=== PATIENT | female | born 1985 | race Caucasian/White ===

== ENCOUNTER 2016-11-18 22:48 | Inpatient (IN) | payer BC ==
[2016-11-18] MEDS ORDERED: Lactated Ringers 500 ML IV ONE (23:06)
[2016-11-18] MEDS ORDERED: Carboprost Tromethamine 250 MCG/1 ML Amp IM PRN (23:06)
[2016-11-18] MEDS ORDERED: Misoprostol 400 MCG (4 X 100 MCG TAB) RECTAL PRN (23:06)
[2016-11-18] MEDS ORDERED: Lidocaine 1% 30 ML SDV INJECT PRN (23:06)
[2016-11-18] MEDS ORDERED: Methylergonovine 0.2 MG/1 ML Amp IM PRN (23:06)
[2016-11-18] MEDS ORDERED: Ondansetron 4 MG/2 ML SDV IV PRN (23:06)
[2016-11-18] MEDS ORDERED: Sodium Chloride 0.9% 10 ML Syringe FLUSH PRN (23:14)
[2016-11-19] MEDS: Lactated Ringers 1,000 ML IV SCH ×2 (01:01→03:42)
[2016-11-19] MEDS ORDERED: Oxytocin/Normal Saline 30 UNIT/500 ML BAG IV SCH (01:15)
[2016-11-19] MEDS ORDERED: fentaNYL 100 MCG/2 ML SDV ONE (01:49)
--- NOTE | 2016-11-19 02:07 | PCM.PRNOTE ---
- Free Text/Narrative Note: Patient Id'd chart reviewed in sitting positions sterile prep with betadine and draped. L3-4 space id'd, skin wheel with 1% Lidocaine. 24 G pencan spinal needle advanced into SA space via an 18 G introducer. negative blood/ parasthesia positive CSF. 6 mg hyperbaric Marcaine, 30 mcg fentanyl, 20 mcg sufentanyl and epinepherine wash injected into SA space positive swirl X2. BP /120/75, HR 78 SpO2 98% on RA, Temp 97.4 immediate pain relief is achieved
--- NOTE | 2016-11-19 02:10 | PCM.PREANE ---
Preanesthetic Assessment - Procedure Proposed Procedure: Term in labor for vaginal delivery - Anesthesia/Transfusion/Family Hx Anesthesia History: Prior Anesthesia Without Reaction Family History of Anesthesia Reaction: No Transfusion History: No Prior Transfusion(s) Intubation History: Unknown - Review of Systems General: No Symptoms Pulmonary: No Symptoms Cardiovascular: No Symptoms Gastrointestinal: No symptoms Neurological: No Symptoms Other: Reports: None - Physical Assessment NPO Status Date: 11/19/16 NPO Status Time: 00:00 Pulse: 69 O2 Sat by Pulse Oximetry: 99 Respiratory Rate: 20 Blood Pressure: 120/75 Temperature: 97.2 F Height: 1.5 m Weight: 65.317 kg ASA Class: 2 Mental Status: Alert & Oriented x3 Airway Class: Mallampati = 2 Dentition: Reports: Normal Dentition ROM/Head Extension: Full Lungs: Clear to auscultation, Normal respiratory effort Cardiovascular: Regular Rate, Regular Rhythm - Lab Values: Laboratory Last Values WBC 9.5 10^3/uL (5.0-10.0) 11/18/16 23:30 RBC 4.23 10^6/uL (4.2-5.4) 11/18/16 23:30 Hgb 13.0 g/dL (12.0-16.0) 11/18/16 23:30 Hct 38.6 % (37.0-47.0) 11/18/16 23:30 MCV 91.3 fL (80-100) 11/18/16 23:30 MCH 30.7 pg (27.0-34.0) 11/18/16 23:30 MCHC 33.7 g/dL (33.0-35.0) 11/18/16 23:30 Plt Count 226 10^3/uL (150-450) 11/18/16 23:30 - Allergies Allergies/Adverse Reactions: Allergies Allergy/AdvReac Type Severity Reaction Status Date / Time amoxicillin trihydrate Allergy Abdominal Verified 09/15/14 15:52 [From Augmentin] Pain cefaclor [From Ceclor] Allergy Hives Verified 09/15/14 15:52 potassium clavulanate Allergy Abdominal Verified 09/15/14 15:52 [From Augmentin] Pain - Blood Blood Available: No Product(s) Available: None - Anesthesia Plan Pre-Op Medication Ordered: None - Acknowledgements Anesthesia Type Planned: Spinal Pt an Appropriate Candidate for the Planned Anesthesia: Yes Alternatives and Risks of Anesthesia Discussed w Pt/Guardian: Yes Pt/Guardian Understands and Agrees with Anesthesia Plan: Yes Additional Comments: R/B of Intrathecal Narcotics for labor pain discussed with patient and agreed. consent is signed. PreAnesthesia Questionnaire - SUBSTANCE USE Smoking Status *Q: Never Smoker Second Hand Smoke Exposure: No Days Per Week of Alcohol Use: 0 Recreational Drug Use History: No - HOME MEDS Home Medications: Home Meds Cyclobenzaprine [Flexeril] 10 mg PO TID PRN #30 tablet 07/24/14 [Rx] Docusate Sodium [Colace] 100 mg PO BID PRN #30 cap 09/28/14 [Rx] Ferrous Sulfate 325 mg PO WITHBREAKFAST #30 tablet 09/28/14 [Rx] - CURRENT (IN HOUSE) MEDS Current Meds: Current Medications Acetaminophen (Tylenol) 650 mg PO Q4H PRN PRN Reason: Pain (Mild 1-3) and fever Carboprost Tromethamine (Hemabate Ds) 250 mcg IM ASDIRECTED PRN PRN Reason: HEMORRHAGE Lactated Ringer's (Ringers, Lactated) 1,000 mls @ 125 mls/hr IV ASDIRECTED YAMIL Last Admin: 11/19/16 01:01 Dose: 125 mls/hr Oxytocin/Sodium Chloride (Pitocin In Ns 30 Unit/500 Ml) 30 unit in 500 mls @ 500 mls/hr IV TITRATE YAMIL; 500 MUNITS/MIN PRN Reason: Protocol Lidocaine HCl (Xylocaine-Mpf 1%) 10 ml INJECT ASDIRECTED PRN PRN Reason: Perineal Repair Methylergonovine Maleate (Methergine) 0.2 mg IM ASDIRECTED PRN PRN Reason: Hemorrhage Misoprostol (Cytotec) 800 mcg RECTAL ASDIRECTED PRN PRN Reason: Hemorrhage Ondansetron HCl (Zofran) 4 mg IV Q4H PRN PRN Reason: Nausea/Vomiting Last Admin: 11/19/16 01:16 Dose: 4 mg Sodium Chloride (Saline Flush) 10 ml FLUSH ASDIRECTED PRN PRN Reason: Keep Vein Open Discontinued Medications Fentanyl (Sublimaze) Confirm Administered Dose 100 mcg .ROUTE .STK-MED ONE Stop: 11/19/16 01:50 Lactated Ringer's (Ringers, Lactated) 500 mls @ 500 mls/hr IV .BOLUS ONE Stop: 11/19/16 00:05 Sufentanil Citrate (Sufenta) Confirm Administered Dose 50 mcg .ROUTE .K-MED ONE Stop: 11/19/16 01:50
[2016-11-19] MEDS ORDERED: Simethicone 80 MG Tab.Chew PO PRN (04:09)
[2016-11-19] MEDS ORDERED: Zolpidem 5 MG Tab PO PRN (04:09)
[2016-11-19] MEDS ORDERED: Oxytocin 10 Units/1 ML SDV IM PRN (04:09)
[2016-11-19] MEDS ORDERED: Sodium Chloride 0.9% 10 ML Syringe FLUSH PRN (04:09)
[2016-11-19] MEDS ORDERED: Benzocaine/Menthol 20%-0.5% Spray 56 GM Canister TOP PRN (04:09)
[2016-11-19] MEDS: Ibuprofen 800 MG Tab PO PRN ×2 (05:19→19:56)
[2016-11-19] MEDS: Docusate Sodium 100 MG Cap PO PRN ×2 (09:28→19:56)
[2016-11-19] MEDS: Prenatal Multivitamin with Calcium/Folic Acid/Iron Tab PO SCH (09:28)
[2016-11-19] MEDS: Acetaminophen 325 MG Tab PO PRN (09:28)
--- NOTE | 2016-11-19 10:04 | HP ---
PATIENT IDENTIFICATION: Jo Peñaloza is a 31-year-old, G2, P1-0-0-1, intrauterine at 39-1/7 weeks by 8-/7th-week ultrasound, who presents with contractions. HISTORY OF PRESENT ILLNESS: The patient states contractions started approximately 8:00 p.m. on date of admission, increasing in frequency and intensity to the point that they are coming every 5 minutes, lasting about a minute, felt in the lower abdomen and back and causing her to breathe through them. Nothing seems to make them better. Time has made them worse. She denies any spotting, bleeding, or leaking. To put this in context, with her last delivery, she was found to be around 6 cm upon admission and dilated quickly thereafter. Records were called for, reviewed as below and supplemented by patient history. OBSTETRICAL HISTORY: On 09/26/2014, delivered at 39-5/7th weeks via vacuum- assisted vaginal delivery yielding a female with excessive bleeding, weighing 3235 g. ANTEPARTUM LABORATORY DATA: ABO blood type O positive, negative antibody. Rubella immune. RPR nonreactive. Negative hepatitis B surface antigen. Negative hep C, HIV, GC, and Chlamydia. Wet prep remarkable for some fungal elements and yeast. One-hour GTT was 100 on 09/04/2016, with hemoglobin 11.3 and platelets 209,000 same day. GBS was negative on 10/30/2016. ALLERGIES: Ceclor, Augmentin. MEDICATIONS: vitamins. PAST MEDICAL/PAST SURGICAL HISTORY: Remarkable for history of chickenpox, body piercing of ears and belly. No IV drug use. No tattoos. No blood transfusions. Appendectomy on 02/27/2003. Tonsil and adenoidectomy in 1986 when she was 1 years of age. SOCIAL HISTORY: Does not smoke. No alcohol use since . No drug use. Sexually active with male partner. and lives in [place]. Lives with her and daughter. She has 2 dogs in the house. 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 FAMILY HISTORY: Alzheimer's disease in maternal grandfather, father with COPD, diabetes in paternal grandfather, paternal grandmother with heart disease, hypertension in father, paternal grandfather with lung cancer and he did smoke. Mother, sister, brother, and maternal grandmother do not have any diseases. Negative family history of bleeding problems, anesthesia problems, thyroid disease, defects, seizures, or cystic fibrosis. REVIEW OF SYSTEMS: Otherwise reviewed and felt to be noncontributory. OBJECTIVE: Vital Signs: Blood pressure was 129/68, heart rate 80, the patient feels afebrile, respiratory rate is between 12 and 16. Appearance: Female, appears her stated age, breathing through her contractions, answering questions appropriately in between. HEENT: Head atraumatic. EOMs intact. PERRLA. No scleral icterus. No obvious otorhinorrhea. Mucous membranes moist. Neck: No obvious tenderness. Lungs: Clear to auscultation bilaterally with distance. No increased work of breathing. Heart: S1 and S2, regular rate and rhythm. Abdomen: Gravid, Alejandro's indeterminate, nontender, nondistended. Bowel sounds positive. No other organomegaly, pulsatile masses, or obvious hernias. No rebound, rigidity, or guarding. : Normal external female genitalia. Normal position and presentation of urethra. Vaginal Exam: Reveals to be 4 cm, 80% effaced, -1 to -2 station, vertex suspected. Extremities: Trace pedal edema. Deep tendon reflexes 2/4 bilaterally and symmetric in lower extremities. Psych: Mood and affect congruent. Judgment and insight intact. Skin: No cyanosis, clubbing, or jaundice. heart tones; baseline is in the 130s range. There is at least 1 acceleration noted. Tocometer reveals contractions every 5 minutes on average. ASSESSMENT: 1. Intrauterine at 39-1/7 weeks by 18-3/7th-week ultrasound. 2. Active labor with contractions with cervical change. 3. Group B Streptococcus negative. 4. 2, para 1-0-0-1. 5. History of rapid cervical dilation. PLAN: The patient will be admitted to the hospital. Follow clinically and closely. I did discuss potential for artificial rupture of membranes. The patient understands and agrees, and shared decision was made to proceed with this. Please see further notes after this has been done. At current time, following heart tones and maternal status closely. [facility] /[id number]
--- NOTE | 2016-11-19 10:46 | PCM.POSTAN ---
POST ANESTHESIA ASSESSMENT - MENTAL STATUS Mental Status: alert, oriented - VITAL SIGNS Pulse Rate: 70 SaO2: 100 Resp Rate: 18 Blood Pressure: 110/62 Temperature: 97.3 F - RESPIRATORY Respiratory Status: respiratory rate WNL, airway patent, O2 saturation stable - CARDIOVASCULAR CV Status: pulse rate WNL, blood pressure stable - GASTROINTESTINAL GI Status: no symptoms - PAIN Pain Score: 0 - POST OP HYDRATION Hydration Status: adequate & stable - OBSERVATIONS Free Text/Narrative:: Sitting in bed deny pain or nausea. Ambulated without any issue. Achieved full recovery from her spinal narcotic. Pleased with her anesthetic plan of care.
--- NOTE | 2016-11-19 11:37 | PN ---
DATE: 11/18/2016 SUBJECTIVE: The patient's contractions continued to get stronger. OBJECTIVE: heart tones in the 130s-135 range, felt to be reassuring. Tocometer reveals contractions every 4-5 minutes. Vaginal exam reveals her to be changed at 4+ cm, 75 to 80% effaced, -1 station, vertex suspected, and artificial membranes done after discussion with the patient yielding copious amounts of clear fluid. ASSESSMENT/PLAN: Intrauterine at 39-1/7 weeks by 8 and 07/30 weeks' ultrasound in active labor with contractions with cervical change in a G2, P1-0- 0-1 with history of rapid cervical dilation. We will continue to follow clinically and closely. Pain control has been discussed with her through the HUMAN RELATIONS MANAGER already and we will continue to follow closely. The patient understands and agrees with the above treatment plan. [facility] /[id number]
[2016-11-19] MEDS ORDERED: fentaNYL 100 MCG/2 ML SDV ITHECAL ONE (12:37)
--- NOTE | 2016-11-19 13:44 | OBOUT ---
DATE: 11/18/2016 DATE AND TIME OF NST: Date: 11/18/2016. Time: 2313 hours to 2328 hours. REASON FOR NST: 1. Intrauterine at 39-1/7th weeks by 8-3/7th week ultrasound. 2. Active labor. 3. Group B Streptococcus negative. 4. G2, P1-0-0-1. 5. History of rapid cervical dilation. NST INTERPRETATION: During this time period, tone baseline is approximately 130 to 135, and there are at least two 15 x 15 beat per minute accelerations, making this strip reactive. It is also noted to be reassuring. Tocometer reveals potential of 3 contractions, felt by patient breathing through them. ASSESSMENT: 1. NST-reactive and reassuring. 2. Tocometer with contractions. PLAN: Please see admit history and physical for further details. Currently, IV is being started, and we will consider artificial rupture membranes as discussed with the patient and as she has requested. [facility] /[id number]
[2016-11-20] MEDS: Ibuprofen 800 MG Tab PO PRN (04:27)
[2016-11-20] MEDS: Acetaminophen 325 MG Tab PO PRN (09:13)
[2016-11-20] MEDS: Docusate Sodium 100 MG Cap PO PRN (09:14)
[2016-11-20] MEDS: Prenatal Multivitamin with Calcium/Folic Acid/Iron Tab PO SCH (09:14)
--- NOTE | 2016-11-20 09:17 | DEL ---
DATE: 11/19/2016 PREOPERATIVE DIAGNOSES: 1. Intrauterine at 39-2/7th weeks by 8-3/7th weeks' ultrasound. 2. Active labor upon admit. 3. Group B Streptococcus negative. 4. History of rapid cervical dilation. 5. 2, para 1-0-0-1. 6. bradycardia in the second stage of labor. POSTOPERATIVE DIAGNOSES: 1. Intrauterine at 39-2/7th weeks by 8-3/7th weeks' ultrasound - delivered. 2. Active labor upon admit. 3. Group B Streptococcus negative. 4. History of rapid cervical dilation. 5. 2 para 1-0-0-1. 6. bradycardia in the second stage of labor. 7. CIERA presentation with left hand by right cheek with left shoulder/posterior shoulder delivered first with patient pushing. 8. Small, less than 1 cm, perineal laceration non-repaired, nonbleeding, after discussion with the patient. PROCEDURE PERFORMED: NST, artificial rupture of membranes on 11/18/2016, followed by vacuum-assisted vaginal delivery on 11/19/2016. ANESTHESIA/ANALGESIA: The patient did receive an intrathecal in the first stage of labor. FINDINGS: Female, scores of 8 and 9, weighing 7 pounds 4 ounces (3280 g). ESTIMATED BLOOD LOSS: 200 mL. SUMMARY OF EVENTS: The patient is a 31-year-old G2, P1-0-0-1, intrauterine at 39-1/7th weeks on date of admission (11/18/2016), delivered on 11/19/2016. She was admitted in active labor with history of rapid cervical dilation. She underwent NST followed by artificial rupture of membranes. Continued to dilate and received an intrathecal in the first stage of labor. She was found to be in the second stage of labor. I was called to the room, donned sterile gown and gloves. The patient started pushing with contractions. During this time period, bradycardia ensued with heart rates in the 80s to 90s without recovery between contractions. Subsequently, discussion about kiwi vacuum-assisted vaginal delivery ensued with her and her . Discussed risks, benefits, alternatives and complications of this. Verbal consent was obtained. Catheter was introduced in the bladder yielding copious amounts of clear urine, this was removed. With the next episode of pushing, vertex was seen splitting the labia and kiwi vacuum was applied. With gentle pulling on the kiwi vacuum while pumped up to the green and with the patient pushing, vertex was then delivered in an CIERA presentation with vacuum disengaged thereafter. Left hand was noted to be by the right cheek and with pushing, this posterior arm/shoulder delivered first prior to the anterior shoulder, which then followed, followed by the rest of the without difficulty. Mouth and nares were suctioned. Cord was doubly clamped and cut, and infant was resuscitated on mother's abdomen/chest. Then, approximately 10 mL of cord blood was obtained for labs. Placenta then delivered with gentle cord traction and fundal massage within 5 to 10 minutes. Perineum, vagina, and perirectal areas were then examined and noted to have a small less than 1 cm perineal laceration, non-repaired, nonbleeding, after discussion with the patient. Mother and infant are currently stable at the time of dictation. [facility] /[id number]
[2016-11-20 11:08] VITALS: BP 114/63
--- NOTE | 2016-11-25 02:31 | DISCH ---
ADMITTING DIAGNOSES: 1. 2, para 1-0-0-1. 2. A 39 and 1/7th weeks based on 8-week ultrasound. 3. Blood type O positive, rubella immune, and group B Streptococcus negative. DISCHARGE DIAGNOSES: 1. 2, now para 2-0-0-2. 2. A 39 and 1/7th weeks based on 8-week ultrasound. 3. Blood type O positive, rubella immune, and group B Streptococcus negative. 4. Vacuum-assisted vaginal delivery secondary to bradycardia. 5. Status post intrathecal for pain management. BRIEF HISTORY: A 31-year-old female with uncomplicated presented with spontaneous onset of labor, which was managed with intrathecal for pain management and artificial rupture of membranes. She was in stage I for about 7- 1/2 hours and pushed only for about 7 minutes. Baby was having significant difficulties with bradycardia, therefore vacuum assistance was performed and baby is a term female, weight 3280 g with scores of 8 and 9. HOSPITAL COURSE: Good. The patient has done well since time of delivery, ambulating, tolerating regular diet, voiding without difficulties, passing flatus. seems to be going well. No concerns of pre-eclampsia or infection. Overall, doing well and wishing to go home on day #1. LABORATORY DATA: Admission hemoglobin 13.0, platelets of 262. Discharge hemoglobin of 11.8 and platelets of 200. DISCHARGE CONDITION: Good. PHYSICAL EXAMINATION: Vital Signs: Temperature is 98.3, pulse 60, blood pressure 114/63, respiratory rate 16, and O2 saturations 97% on room air. Heart: Regular without obvious murmur. Lungs: Clear bilaterally. Abdomen: Soft without masses. Fundus is firm and below the umbilicus. Extremities: No edema, erythema, or tenderness noted. FOLLOWUP: A 6-week exam in the office. DICHARGE INSTRUCTIONS: Routine post-vaginal delivery instructions for mother were reviewed and she understands to return if she develops any complications such as fever, chills, increased pelvic pain or pressure, foul- smelling drainage, discharge, difficulties with bleeding or any other issues arise. DISCHARGE MEDICATIONS: 1. Iron 325 mg once or twice daily for 4 weeks. 2. Ibuprofen 800 mg every 8 hours as needed for pain. 3. Tylenol 650 mg every 6 hours as needed for pain. 4. vitamin [address] [facility] /[id number]
== END 2016-11-20 12:09 | disposition home or self-care (01) | DRG 560 ==
LOC: DL.OBCHECK 22:48 → DL.OB 23:07 → OBSVTOIN 11-19 03:55 → DL.MS 11-19 08:26
PROVIDERS: ADMIT Family Medicine; ATTEND Family Medicine
PROC: 10D07Z6 Extraction of Products of Conception, Vacuum, Via Natural or Artificial Opening (ICD-10-PCS; principal; 2016-11-19)
PROC: 10907ZC Drainage of Amniotic Fluid, Therapeutic from Products of Conception, Via Natural or Artificial Opening (ICD-10-PCS; 2016-11-19)
PROC: 00HU33Z Insertion of Infusion Device into Spinal Canal, Percutaneous Approach (ICD-10-PCS; 2016-11-19)
DX: O76 Abnormality in fetal heart rate and rhythm complicating labor and delivery (principal); Z3A.39 39 weeks gestation of pregnancy; Z37.0 Single live birth; Z88.1 Allergy status to other antibiotic agents
CPT/HCPCS: 36415; 85027; A9270-GY; J2405; J2590; J3010; J7120

== ENCOUNTER 2019-11-28 00:55 | Inpatient (IN) | payer BC ==
[2019-11-28] MEDS ORDERED: Betamethasone Acetate/Betamethasone Sod Phosphate 30 MG/5 ML MDV IM STA (00:59)
[2019-11-28] MEDS ORDERED: SODIUM CHLORIDE 0.9% IV STA (01:23)
[2019-11-28] MEDS ORDERED: Tranexamic Acid 1,000 MG in Sodium Chloride 0.9% 100 ML IV PRN (01:23)
[2019-11-28] MEDS ORDERED: GENTAMICIN IV STA (01:23)
[2019-11-28] MEDS ORDERED: Sodium Chloride 0.9% 10 ML Syringe FLUSH PRN (01:23)
[2019-11-28] MEDS ORDERED: Oxytocin/Normal Saline 60 UNIT/1,000 ML BAG ONE (01:25)
[2019-11-28] MEDS: Lactated Ringers 1,000 ML IV SCH ×3 (01:25→02:18)
[2019-11-28] MEDS ORDERED: Lactated Ringers 1,000 ML IV SCH (01:30)
[2019-11-28] MEDS ORDERED: Oxytocin/Normal Saline 30 UNIT/500 ML BAG IV SCH (01:30)
[2019-11-28] MEDS ORDERED: Clindamycin Phosphate 600 MG in Sodium Chloride 0.9% 100 ML IV STA (01:45)
[2019-11-28] MEDS: Citric Acid/Sodium Citrate Solution 30 ML Cup PO ONE ×2 (02:07→03:01)
--- NOTE | 2019-11-28 02:47 | HP ---
CHIEF COMPLAINT: Gush of vaginal blood. HISTORY OF PRESENT ILLNESS: A 34-year-old 3, para 2-0-0-2, currently at 33-2/7 weeks' gestation with a complete placenta previa, was awoken at 1245am from sleep with a large gush of blood that saturated through her underwear, some bunched up toilet paper, and onto the towel that she had between her legs when she came into the hospital. Reports it is like a heavy period. She denies any contractions. She has had good movement. Denies other acute complaints. verifies that she has been feeling well recently. She has been taking it easy. No heavy lifting or overdoing things. PAST MEDICAL HISTORY: Some body piercings and chickenpox. Health history is negative. SURGICAL HISTORY: Appendectomy on 02/27/2003, tonsillectomy and adenoidectomy in 1986. FAMILY HISTORY: Father alive with hypertension and COPD. Mother, sister, brother all alive with no known health problems. Maternal grandfather , Alzheimer's. Paternal grandmother , heart disease. Paternal grandfather , diabetes and lung cancer. Remainder of family history is negative. 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 Typically, has still 12 children there. Her , Endy, is currently working at [id number]. Life remains otherwise stable. OBSTETRICAL HISTORY: 1. 09/26/2014, 39 weeks 5 days' gestation, vacuum-assisted delivery, female infant, weighing 3235 g. This delivery was vacuum assisted for nearing prolonged 2nd stage of labor and bradycardia complicated by hemorrhage. 2. 11/19/2016, 39 weeks 2 days' gestation, vacuum-assisted vaginal delivery, female infant, weighing 3285 g. Vacuum due to bradycardia in the 80s and then this current . LABS: Blood type is O positive. Antibody screen negative. Rubella nonimmune. Group B strep status is unknown. Glucose tolerance test was normal. Hepatitis B and C negative. HIV negative. Syphilis serology negative. Wet prep negative. TSH was normal, 2.65. Last known hemoglobin was 11.0 on 10/22/2019. She did receive her Tdap and influenza vaccines this , and was seeing Dr. Dang in consultation for anticipated delivery at 36 weeks in [place]. MEDICATIONS: vitamin 1 daily, iron sulfate 325 mg daily, and vitamin C 500 mg daily. ALLERGIES: Ceclor and amoxicillin. Chart shows Augmentin caused stomach cramps and Ceclor caused urticaria with hives. REVIEW OF SYSTEMS: Pertinent positives and negatives under the history of present illness, otherwise negative. OBJECTIVE: Vital Signs: Stable and reviewed on the strip and in [facility]. Initial HEENT: Grossly unremarkable. Neck: Supple. Heart: Regular without murmur. Lungs: Clear to auscultation bilaterally. Abdomen: Gravid, soft. heart tones tracing at 130 beats per minute at baseline, moderate [id number] variability, reassuring, initially nonreactive, but then did become reactive during monitoring. [place] shows no contractions. Genitourinary: Blood at the vaginal opening and speculum. Blood is pulling on insertion of the speculum to the lower vaginal opening. Extremities: No edema, erythema, or tenderness noted. LABORATORIES: Hgb 11.4. Plts 188. CoVid Negative. ASSESSMENT: 1. Complete placenta previa with hemorrhage. 2. 33-2/7 weeks' estimated gestational age. 3. Advanced maternal age. 4. History of hemorrhage. 5. Anemia of . 6. Blood type O positive, rubella immune, and group B strep negative. PLAN: NICU Team has been activated. [facility] is unavailable for at least 1 hour. OR team, RT, and surgical supply assistant all notified to be present. We will attempt to await NICU team being available before performing primary low transverse section. However, if baby's heart tones take a decline or mother's hemorrhaging picks up significantly, we will need to perform the procedure before the NICU shows up. Decision of spinal or general anesthesia will be determined pending clinical course at that time. ADDENDUM: Helicopter became available and her bleeding had stopped. Contractions resolved post void. Dr. Dang was consulted and accepted pt in transfer. Degree of bleeding was significant enough to not send her by ambulance. Weather was approved to send her by helicopter to [place]. Once the transfer confirmed by all parties, the NICU team was allowed to turn back, and after helicopter take off the OR, RT, and other staff allowed to leave the hospital here. [facility] /[id number] MTDD
[2019-11-28 03:17] VITALS: BP 112/55; PULSE 118
--- NOTE | 2019-11-30 22:22 | DISCH ---
The patient here a grand total of approximately 3 hours. See history and physical for all pertinent details. The patient transferred to higher level of care because of bleeding, complete placenta previa with gestation. [facility] /[id number]
== END 2019-11-28 03:00 | DRG 566 ==
LOC: DL.OBCHECK 00:55 → DL.OB 01:06 → OBSVTOIN 01:06
PROVIDERS: ADMIT Family Medicine; ATTEND Family Medicine
DX: O44.13 Complete placenta previa with hemorrhage, third trimester (principal); Z3A.33 33 weeks gestation of pregnancy; D64.9 Anemia, unspecified; O99.013 Anemia complicating pregnancy, third trimester
CPT/HCPCS: 36415; 59025; 85027; 86850; 86900; 86901; A9270-GY; J0702; J1580; J3490; J7050; J7120; U0002

== ENCOUNTER 2024-05-17 21:04 | Emergency (ER) | payer BC ==
[2024-05-17] MEDS: Acetaminophen 325 MG Tab PO ONE (21:53)
[2024-05-17] MEDS: Aspirin 81 MG Tab.Chew PO ONE (21:53)
[2024-05-17 22:19] LABS: BASOPHILS PERCENT AUTO 0.5 % (0.0-1.0); HEMATOCRIT 39.5 % (37.0-47.0); HEMOGLOBIN 13.1 g/dL (12.0-16.0); LYMPHOCYTES PERCENT AUTO 19.2 % (20.5-50.1); MEAN CORPUSCULAR HEMOGLOBIN 29.2 pg (27.0-34.0); MEAN CORPUSCULAR HGB CONC 33.2 g/dL (33.0-35.0); MEAN CORPUSCULAR VOLUME 88.2 fL (80-100); MONOCYTES PERCENT AUTO 7.5 % (2-8); NEUTROPHILS PERCENT AUTO 70.8 % (42.2-75.2); PLATELET COUNT,PLT 295 10^3/uL (150-450); RED BLOOD CELL COUNT 4.48 10^6/uL (4.2-5.4); WHITE BLOOD CELL COUNT,WBC 6.5 10^3/uL (5.0-10.0)
[2024-05-17 22:42] LABS: ALBUMIN 3.7 g/dL (3.4-5.0); ANION GAP 12.7 mEq/L (7-13); BILIRUBIN TOTAL 0.4 mg/dL (0.2-1.0); BUN/CREATININE RATIO 15.3 (No establ ref range); CALCIUM 9.2 mg/dL (8.5-10.1); CREATININE 0.72 mg/dL (0.55-1.02); EST CRCL DRUG DOSING (CG) 74.6 mL/min; MAGNESIUM 2.1 mg/dL (1.8-2.4); POTASSIUM,K 3.7 mmol/L (3.5-5.1); PROTEIN TOTAL,TP 7.4 g/dL (6.4-8.2)
[2024-05-17] MEDS: Dexamethasone 4 MG/ML SDV IM ONE (23:03)
[2024-05-18 00:21] VITALS: BP 117/68; PULSE 82
== END 2024-05-18 01:00 | disposition home or self-care (01) ==
LOC: DL.ED 21:04
DX: J20.8 Acute bronchitis due to other specified organisms (principal); Z90.49 Acquired absence of other specified parts of digestive tract; Z88.0 Allergy status to penicillin; Z88.8 Allergy status to other drugs, medicaments and biological substances; Z79.899 Other long term (current) drug therapy
CPT/HCPCS: 36415; 71046; 80053; 82550; 83690; 83735; 84484; 85025; 85379; 87428; 93005; 96372; 99285; A9270; J1100; 93010; 99284